=== PATIENT | male | born 1955 | race Caucasian/White ===

== ENCOUNTER → 2016-10-10 | Outpatient (CLI) | payer BC, OTHER ==
[~2016-10-10] MED LIST: CIPR500T89 PO; COLA100C3 PO; METF500T PO; PERC5TAB6 PO; TYLE325T5 PO; valtrex OR
--- NOTE | 2016-10-10 11:58 | RADONC ---
RADIATION ONCOLOGY FOLLOWUP NOTE DATE: 10/10/2016 CHART NUMBER: [id number] DIAGNOSIS: Prostate cancer. STAGE: IIB, [id number]. ECOG PERFORMANCE STATUS: 0 FOLLOWUP NOTE: Mr. Tena is a very pleasant 61-year-old white male with the diagnosis of a stage IIB, [id number], moderate to poorly differentiated [place] score 7 (4-3) adenocarcinoma of prostate who is presenting to us today for routine followup visit 7 months post completion of external beam radiation therapy. The patient presents today reporting that generally he is doing quite well with no significant difficulties related to his radiation therapy or disease other than some urinary obstructive symptoms and occasional loose bowel movements. The patient's review of systems is positive for his urinary obstructive symptoms. He is now taking oxybutynin, and some loose bowel movements, but is otherwise noncontributory. He denies nausea, vomiting, fevers, chills, night sweats, diplopia, headaches, anxiety or depression, anorexia, weight loss, visual disturbances, chest pain, urinary or bowel difficulties, bone pain or neurological problems. PHYSICAL EXAMINATION: The patient is a well-developed, well-nourished male in no acute distress. HEENT exam is normocephalic, atraumatic. Extraocular movements are intact. There is no palpable cervical, supraclavicular, infraclavicular, axillary, or inguinal lymphadenopathy present. Lungs are clear to auscultation and percussion. Heart has a regular rate and rhythm. Abdomen is benign with no hepatosplenomegaly, masses, or tenderness. Rectal examination reveals a normal anal sphincter tone. His prostate bed is smooth without evidence of nodularity. Skeletal examination reveals no tenderness to pressure or percussion of the bony skeleton. Extremities reveal no clubbing, cyanosis, or edema. Neurologic exam is grossly intact as is the remainder of the physical examination. ASSESSMENT: The patient is clinically NEAL at this time and will be seen by us again in 9 months for further followup. He will also continue to be followed by his other physicians as well. cc: Alcides Quintana MD *Everton Mares MD
== END ==
LOC: M ONCR 11:17
PROVIDERS: ATTEND Radiology Radiation Oncology
DX: C61 Malignant neoplasm of prostate (principal)

== ENCOUNTER → 2017-07-10 | Outpatient (CLI) | payer BC, OTHER | LOC: M ONCR 09:25 | DX: C61 Malignant neoplasm of prostate (principal) | CPT/HCPCS: G0463 ==

== ENCOUNTER → 2017-12-23 | Outpatient (CLI) | payer BC, MEDICARE, OTHER ==
[2017-12-23 18:48] LABS: PROSTATIC SPECIFIC AG MONITOR 0.06 NG/ML (< 4.0)
== END ==
LOC: M SMT 10:08
DX: C61 Malignant neoplasm of prostate (principal)
CPT/HCPCS: 84153

== ENCOUNTER → 2018-07-16 | Outpatient (CLI) | payer MEDICARE, BC, OTHER ==
[~2018-07-16] MED LIST changes: +CIPR-249 PO; -CIPR500T89 PO; -COLA100C3 PO; +COLA100C5 PO; -METF500T PO; +METF500T13 PO; +PERC5TAB12 PO; -PERC5TAB6 PO
--- NOTE | 2018-07-21 10:00 | RADONC ---
RADIATION ONCOLOGY FOLLOWUP NOTE DATE: 07/16/2018 CHART NUMBER: [id number] DIAGNOSIS: Prostate cancer. STAGE: IIB, [id number]. ECOG PERFORMANCE STATUS: 0. FOLLOWUP NOTE: Mr. Bell is a very pleasant 63-year-old white male with the diagnosis of a stage IIB, [id number] moderate to poorly differentiated [place] score 7 (4-3) adenocarcinoma of prostate who is presenting to us today for routine followup visit 2 years and 4 months post completion of external beam radiation therapy. The patient presents today reporting that he is doing quite well with no complaints at this time related to his radiation therapy or disease. He is having no urinary or bowel difficulties and no bone pain. The patient's review of systems is noncontributory. He denies nausea, vomiting, fevers, chills, night sweats, diplopia, headaches, anxiety or depression, anorexia, weight loss, visual disturbances, chest pain, urinary or bowel difficulties, bone pain, or neurological problems. PHYSICAL EXAMINATION: The patient is a well-developed, well-nourished male in no acute distress. HEENT exam is normocephalic, atraumatic. Extraocular movements are intact. There is no palpable cervical, supraclavicular, infraclavicular, axillary, or inguinal lymphadenopathy present. Lungs are clear to auscultation and percussion. Heart has a regular rate and rhythm. Abdomen is benign with no hepatosplenomegaly, masses, or tenderness. Rectal examination reveals a normal anal sphincter tone. His prostate bed is free of nodularity or recurrent disease. Skeletal examination reveals no tenderness to pressure or percussion of the bony skeleton. Extremities reveal no clubbing, cyanosis, or edema. Neurologic exam is grossly intact as is the remainder of the physical examination. ASSESSMENT: The patient is clinically NEAL at this time. At his request he is being discharged from our followup except on a as needed basis. He will continue his close followup and routine blood work with Dr. Quintana. cc: Alcides Quintana MD
== END ==
LOC: M ONCR 09:05
PROVIDERS: ATTEND Radiology Radiation Oncology
DX: C61 Malignant neoplasm of prostate (principal)
CPT/HCPCS: 36415; 84153; G0463